=== PATIENT | female | born 1990 | race Caucasian/White ===

== ENCOUNTER 2017-03-03 04:23 | Inpatient (IN) | payer MEDICAID ==
[2017-03-03] VITALS (31 sets, daily range): BP systolic 113–139; BP diastolic 65–86; PULSE 84–120; RESP 18–20; TEMP 97.8–98.5; O2SAT 99
[~2017-03-03 04:23] MED LIST: IBUP600 PO; PERI8.6T PO; PREN1TAB30
[2017-03-03] MEDS ORDERED: NS 500 ML BOLUS IV PRN (05:15)
[2017-03-03] MEDS ORDERED: CITRIC ACID-SODIUM CITRATE LIQ 30 ML UDC PO SCH (05:15)
[2017-03-03] MEDS ORDERED: OXYTOCIN 30 UNITS 500ML PREMIX IV ONE (05:15)
[2017-03-03] MEDS ORDERED: LACTATED RINGER'S 1000 ML IV SCH (05:15)
[2017-03-03] MEDS ORDERED: ONDANSETRON HCL 4 MG/2 ML VIAL IV PRN (05:15)
[2017-03-03] MEDS ORDERED: LACTATED RINGER'S 1000 ML BOLUS IV PRN (05:15)
[2017-03-03] MEDS ORDERED: LIDOCAINE HCL 1% 50 ML VIAL INFIL PRN (05:15)
[2017-03-03] MEDS ORDERED: LIDOCAINE HCL 1% 50 ML VIAL I-DERMAL PRN (05:15)
[2017-03-03] MEDS ORDERED: MINERAL OIL 10 ML VIAL TOPICAL PRN (05:15)
[2017-03-03] MEDS ORDERED: NS 1000 ML IV PRN (05:15)
[2017-03-03 05:26] LABS: BLOOD, URINE NEG (NEG); GLUCOSE,URINE NEG (NEG); KETONE, URINE NEG (NEG); NITRITE,URINE NEG (NEG); SQUAMOUS EPITHELIAL CELL URINE 1 /hpf (0-5); URINE COLOR LIGHT-YELLOW (YELLW/STRAW)
[2017-03-03 05:29] LABS: COMMENT (UR) CULT NOT INDICATED; CULTURE IF INDICATED CULT NOT INDICATED
[2017-03-03 05:41] LABS: AUTOMATED NEUTROPHIL # 9.6 TH/MM3 (1.8-7.7); BASOPHIL % 0.4 % (0.0-2.0); EOSINOPHIL # 0.1 TH/MM3 (0-0.4); EOSINOPHIL % 0.5 % (0.0-4.0); HEMATOCRIT 33.1 % (35.0-46.0); LYMPH % 17.8 % (9.0-44.0); LYMPHOCYTE # 2.3 TH/MM3 (1.0-4.8); MEAN CELL VOLUME 80.3 FL (80.0-100.0); MEAN CORPUSCULAR HEMOGLOBIN 26.5 PG (27.0-34.0); MONO % 8.6 % (0.0-8.0); NEUT % 72.7 % (16.0-70.0); PLATELET COUNT 312 TH/MM3 (150-450); RED BLOOD COUNT 4.12 MIL/MM3 (4.00-5.30); RED CELL DISTRIBUTION WIDTH 13.8 % (11.6-17.2); WHITE BLOOD COUNT 13.2 TH/MM3 (4.0-11.0)
[2017-03-03] MEDS ORDERED: fentaNYL 2MCG-BUPIV 0.125% INJ 100 ML ONE (05:50)
[2017-03-03] MEDS ORDERED: ePHEDrine/NS 25 MG/5 ML SYR ONE (05:50)
[2017-03-03 05:52] LABS: HEMO FLAGS AUTO DIFF
[2017-03-03 06:55] LABS: PLATELET ESTIMATE SMEAR NORMAL (NORMAL); PLATELET MORPHOLOGY NORMAL (NORMAL); SCAN/DIFF AUTO DIFF CONFIRMED
--- NOTE | 2017-03-03 07:52 | HHI.HP ---
History & Physical H&P HPI Chief Complaint Contractions Date Seen: Mar 03, 2017 Travel History International Travel<30 Days: No Contact w/Intl Traveler<30Days: No Known Affected Area: No History of Present Illness HPI Patient is a 26-year-old at 385/7 weeks gestation who presents to the ED with contractions. Contractions were becoming stronger and increasing in frequency. Contractions are now occurring every 3-5 minutes. She denies any vaginal bleeding or discharge. No crush or leaking of fluid. Positive movement. care with [facility]. History (Limited) History Past Medical History Medical History: Denies Significant Hx Obstetric History Obstetric History in 2014 Past Surgical History Surgical History: No Previous Surgery Family History Family History: Negative Social History Alcohol Use: No Tobacco Use: No Substance Abuse: No Allergies-Medications Allergies-Medications (Allergen,Severity, Reaction): Coded Allergies: No Known Allergies (Unverified , 06/11/15) Home Meds Discontinued Reported Medications Vit W/ Ferrous Fumara ( Vitamin 27-0.8 mg) 1 Tab Tab 06/11/15 Discontinued Scripts Sennosides-Docusate Sodium (Libra-Colace 8.6-50 mg) 1 Tab Tab, 1 TAB PO BID Y for CONSTIPATION, #28 TAB 1 Refill Prov:Vale Parada MD 06/11/15 Ibuprofen (Motrin 600 Mg Tab) 600 Mg Tab, 600 MG PO Q6H Y for CONSTIPATION, #28 TAB 1 Refill Prov:Vale Parada MD 06/11/15 ROS Review of Systems Except as stated in HPI: all other systems reviewed are Neg General / Constitutional: No: Fever, Chills Eyes: No: Blurred Vision, Visual changes HENT: No: Headaches Cardiovascular: No: Chest Pain or Discomfort, Palpitations Respiratory: No: Cough, Short of Breath Gastrointestinal: No: Nausea, Vomiting, Abdominal Pain Genitourinary: Pelvic Pain, No: Dysuria, Discharge, Vaginal Bleeding Musculoskeletal: No: Edema Physical Exam Physical Exam Narrative GENERAL: Well-nourished, well-developed patient. SKIN: Warm and dry. HEAD: Normocephalic and atraumatic. EYES: No scleral icterus. No injection or drainage. ENT: No nasal drainage noted. Mucous membranes pink. Airway patent. NECK: Supple, trachea midline. No JVD. CARDIOVASCULAR: Regular rate and rhythm without murmurs, gallops, or rubs. RESPIRATORY: Breath sounds equal bilaterally. No accessory muscle use. ABDOMEN/GI: Abdomen soft, non-tender, bowel sounds present, no rebound, no guarding Gravid to 38 weeks size GENITOURINARY: External Genitalia: intact and normal in appearance BUS glands: normal Cervix: posterior Dilatation: 5 Effacement: 100 Station: -2 Presentation: vertex Membranes: AROM, clear fluid Uterine Contractions: q3-4min FHT's: Category: I Baseline: 140 Reactive: + Variability: moderate Decels: none EXTREMITIES: No cyanosis or edema. BACK: Nontender without obvious deformity. No CVA tenderness. NEUROLOGICAL: Awake and alert. Motor and sensory grossly within normal limits. Normal speech. Data Data Data Vital Signs Reviewed: Yes Orders Orders Ob (2e) Additional Admit Info (03/03/17 04:47) Admit To Inpatient (03/03/17 ) Code Status (03/03/17 04:57) Vital Signs (Adult) .Per protocol (03/03/17 04:57) Activity Oob Ad Ameena (03/03/17 04:57) Heart (03/03/17 04:57) Amnioinfusion (03/03/17 04:57) Urinary Catheter Management .ONCE (03/03/17 04:57) Diet Npo (03/03/17 Breakfast) Complete Blood Count With Diff (03/03/17 04:57) Hold Clot (03/03/17 04:57) Abo/Rh Blood Type (03/03/17 04:57) Urinalysis - C+S If Indicated (03/03/17 04:57) Resp Oxygen Non Rebreathe Mask (03/03/17 ) ^ Epidural / Intrathecal Infus (03/03/17 04:57) Inpatient Certification (03/03/17 ) Specimen To Be Collected PRN (03/03/17 04:57) Lactated Ringer's 1000 Ml Inj (Lr 1000 M (03/03/17 05:15) Lactated Ringer's 1000 Ml Inj (Lr 1000 M (03/03/17 05:15) Sodium Chlorid 0.9% 500 Ml Inj (Ns 500 M (03/03/17 05:15) Sodium Chlor 0.9% 1000 Ml Inj (Ns 1000 M (03/03/17 05:15) Lidocaine 1% Inj (50 Ml) (Xylocaine 1% I (03/03/17 05:15) Citric Acid-Sodium Citrate Liq (Bicitra (03/03/17 05:15) Ondansetron Inj (Zofran Inj) (03/03/17 05:15) Fentanyl Inj (Fentanyl Inj) (03/03/17 05:15) Fentanyl Inj (Fentanyl Inj) (03/03/17 05:15) Oxytocin 30 Units-500ml Premix (Pitocin (03/03/17 05:15) Lidocaine 1% Inj (50 Ml) (Xylocaine 1% I (03/03/17 05:15) Light Mineral Oil (Muri-Lube Oil) (03/03/17 05:15) Fentanyl 2mcg-Bupiv 0.125% Inj (Fentanyl (03/03/17 05:50) Ephedrine/Ns 25 Mg/5 Ml Syr (Ephedrine/N (03/03/17 05:50) Group B Strep: Negative Labs Laboratory Tests Test 03/03/17 04:45 03/03/17 05:21 Urine Color LIGHT-YELLOW Urine Turbidity CLEAR Urine pH 6.0 Urine Specific [place] 1.013 Urine Protein NEG Urine Glucose (UA) NEG Urine Ketones NEG Urine Occult Blood NEG Urine Nitrite NEG Urine Bilirubin NEG Urine Urobilinogen LESS THAN 2.0 Urine Leukocyte Esterase NEG Urine RBC LESS THAN 1 Urine WBC LESS THAN 1 Urine Squamous Epithelial Cells 1 Microscopic Urinalysis Comment CULT NOT INDICATED White Blood Count 13.2 Red Blood Count 4.12 Hemoglobin 10.9 Hematocrit 33.1 Mean Corpuscular Volume 80.3 Mean Corpuscular Hemoglobin 26.5 Mean Corpuscular Hemoglobin Concent 33.0 Red Cell Distribution Width 13.8 Platelet Count 312 Mean Platelet Volume 7.2 Neutrophils (%) (Auto) 72.7 Lymphocytes (%) (Auto) 17.8 Monocytes (%) (Auto) 8.6 Eosinophils (%) (Auto) 0.5 Basophils (%) (Auto) 0.4 Neutrophils # (Auto) 9.6 Lymphocytes # (Auto) 2.3 Monocytes # (Auto) 1.1 Eosinophils # (Auto) 0.1 Basophils # (Auto) 0.0 CBC Comment AUTO DIFF Differential Comment AUTO DIFF CONFIRMED Platelet Estimate NORMAL Platelet Morphology Comment NORMAL Red Cell Morphology Comment NORMAL MDM MDM Medical Record Reviewed: Yes Narrative Course / MDM 26 year old at 38-5/7 weeks gestation. 1. IUP- Category I tracing, reassuring. 2. Labor- Will admit for labor 3. GBS negative 4. Anticipate dw Cathy Christina MD, R3 Mar 03, 2017 07:52
--- NOTE | 2017-03-03 08:12 | PD.LABORPN ---
Subjective Subjective feeling comfortable with epidural in place Objective Objective Pelvic Exam: Cervix: [mid] Dilatation: [9-10] Effacement: [c] Station: [-1] Presentation: [vtx] Membranes: AROM'd clear this check Uterine Contractions: [q2-4 min] FHT's: Category: [I] Baseline: [130s] Reactive: [y] Variability: [y] Decels: [n] Weeks Gestation: 38 Gest Age Assessed Date: Mar 03, 2017 Gest Age Assessed Time: 08:10 Pt started active labor?: Yes Active labor start date: Mar 03, 2017 Active labor start time: 04:00 Medical induction of labor?: No Artificial rupture of membrane: Yes Artificial ROM date: Mar 03, 2017 Artifical ROM time: 07:45 (see RN note; estimated AROM time) Assessment/Plan Problem List: (1) Labor and delivery indication for care or intervention ICD Codes: O75.9 - Complication of labor and delivery, unspecified Status: Acute Assessment and Plan 26 yo with partida IUP at 38w5d admit for active labor 1) Labor: anticipate 2) GBS neg 3) dispo: plan for 2d PP Vale Parada MD Mar 03, 2017 08:12
[2017-03-03] MEDS ORDERED: BENZOCAINE 20% TOPICAL SPRAY 60 ML CAN TOPICAL PRN (09:00)
[2017-03-03] MEDS ORDERED: oxyCODONE/ACETAMINOPHEN 5 MG/325 MG TAB PO PRN ×2 (09:00)
[2017-03-03] MEDS ORDERED: OXYTOCIN 30 UNITS-500ML PREMIX 500 ML IV SCH (09:00)
[2017-03-03] MEDS ORDERED: SODIUM CHLORIDE 0.9% FLUSH 10 ML FLUSH IV FLUSH SCH (09:00)
[2017-03-03] MEDS ORDERED: WITCH HAZEL 50%/GLYCERIN 12.5% 40 PAD JAR TOPICAL PRN (09:00)
[2017-03-03] MEDS ORDERED: DOCUSATE SODIUM 50 MG/SENNA 8.6 MG TAB PO PRN (09:00)
[2017-03-03] MEDS ORDERED: ZOLPIDEM TARTRATE 5 MG TAB PO PRN (09:00)
[2017-03-03] MEDS ORDERED: ALUMINUM/MAGNESIUM/SIMETH 30 ML CUP PO PRN (09:00)
[2017-03-03] MEDS ORDERED: SODIUM CHLORIDE 0.9% FLUSH 10 ML FLUSH IV FLUSH PRN (09:00)
[2017-03-03] MEDS ORDERED: ONDANSETRON ODT 4 MG TAB PO PRN (09:00)
[2017-03-03] MEDS ORDERED: ACETAMINOPHEN 325 MG TAB PO PRN (09:00)
--- NOTE | 2017-03-03 09:01 | PD.OB.DELI ---
Weeks gestation: 38 Gest age assessed date: Mar 03, 2017 Gest age assessed time: 08:10 Pt started active labor?: Yes Active labor start date: Mar 03, 2017 Active labor start time: 04:00 Medical induction of labor?: No Artificial rupture of membrane: Yes Artificial ROM date: Mar 03, 2017 Artifical ROM time: 07:45 (see RN note; estimated AROM time) Anesthesia: Epidural Episiotomy: None Vaginal Delivery: Normal, Spontaneous Presentation: Occiput anterior Nuchal Cord: x1 (reduced at delivery), Other (body cord delivered through) Delayed cord clamping (45 sec): Yes : Male Delivery date: Mar 03, 2017 Delivery time: 08:46 One Minute : 8 Five Minute : 9 Weight: pending Placenta: Spontaneous delivery, Intact, 3 vessel cord Laceration: Perineal laceration, 1 deg Repair: Chromic running Estimated blood loss: 100 mL Additional Information uncomplicated vaginal delivery healthy male Vale Parada MD Mar 03, 2017 09:01
[2017-03-03] MEDS ORDERED: ePHEDrine/NS 25 MG/5 ML SYR IV PRN (10:45)
[2017-03-03] MEDS ORDERED: NO SYSTEM NARCOTICS PRN (11:00)
[2017-03-03] MEDS ORDERED: fentaNYL 2MCG-BUPIV 0.125% 100 ML EPIDURAL SCH (11:00)
[2017-03-03] MEDS ORDERED: DO NOT ADMINISTER ANTICOAGULANTS PRN (11:00)
[2017-03-03] MEDS: IBUPROFEN 600 MG TAB PO PRN ×2 (11:25→19:04)
[2017-03-03] MEDS ORDERED: DIPHTH/TETANUS/ACEL PERTUSSIS (BOOSTER) 0.5 ML VIAL/PFS IM ONE (16:00)
[2017-03-03] MEDS ORDERED: MEASLES, MUMPS, RUBELLA VACCINE 0.5 ML VIAL SQ ONE (16:00)
[2017-03-04] MEDS: IBUPROFEN 600 MG TAB PO PRN ×2 (01:51→08:45)
[2017-03-04 08:00] VITALS: BP 112/78; PULSE 84; RESP 16; TEMP 98.8
--- NOTE | 2017-03-04 08:14 | HHI.OB ---
Subjective Post Day: 1 Remarks Doing well nursing plans for circumcision at residency clinic no complaints or concerns Objective Vitals/I&O Vital Signs Date Time Temp Pulse Resp B/P (MAP) Pulse Ox O2 Delivery O2 Flow Rate FiO2 03/04/17 02:51 16 03/03/17 20:01 98.5 88 18 117/72 (87) 03/03/17 13:30 97.8 90 18 137/86 (103) 99 03/03/17 13:30 137/86 (103) 03/03/17 13:30 97.8 90 18 99 03/03/17 12:35 18 03/03/17 10:45 20 03/03/17 10:30 119 128/69 (88) 03/03/17 10:15 20 03/03/17 10:00 96 123/69 (87) 03/03/17 09:30 84 113/75 (88) 03/03/17 09:30 20 03/03/17 09:15 98.2 20 03/03/17 09:00 100 123/66 (85) Objective Remarks GENERAL: Well-nourished, well-developed patient. CARDIOVASCULAR: Regular rate and rhythm without murmurs, gallops, or rubs. RESPIRATORY: Breath sounds equal bilaterally. No accessory muscle use. ABDOMEN/GI: Abdomen soft, non-tender. Fundus: Firm, non-tender at umbilicus. GENITOURINARY: Light to moderate bleeding. EXTREMITIES: No cyanosis or edema, non-tender, without signs of DVT. Medications and IVs Current Medications Medications (Trade) Dose Ordered [facility] Route Start Time Stop Time Status Last Admin (NS Flush) 2 ml BID IV FLUSH 03/03/17 09:00 (NS Flush) 2 ml UNSCH PRN IV FLUSH 03/03/17 09:00 (Tylenol) 650 mg Q4H PRN PO 03/03/17 09:00 (Motrin) 600 mg Q6H PRN PO 03/03/17 09:00 03/04/17 01:51 (Percocet 5-325 Mg) 1 tab Q4H PRN PO 03/03/17 09:00 (Percocet 5-325 Mg) 2 tab Q4H PRN PO 03/03/17 09:00 (Americaine 20% Top Spr) 1 spray Q4H PRN TOPICAL 03/03/17 09:00 03/03/17 19:04 (Tucks Pads) 1 applic QID PRN TOPICAL 03/03/17 09:00 03/03/17 19:04 (Libra-Colace) 2 tab Q12H PRN PO 03/03/17 09:00 (Ambien) 5 mg HS PRN PO 03/03/17 09:00 (Mag-Al Plus Susp Liq) 15 ml Q8H PRN PO 03/03/17 09:00 (Zofran Odt) 4 mg Q6H PRN PO 03/03/17 09:00 Miscellaneous Information No systemic narcotics to be given except... UNSCH PRN .XX 03/03/17 11:00 03/04/17 10:59 Miscellaneous Information DO NOT ADMINISTER ANY ANTICOAGUL... UNSCH PRN .XX 03/03/17 11:00 03/04/17 10:59 Fentanyl/ Bupivacaine HCl 100 ml @ 0 mls/hr TITRATE EPIDURAL 03/03/17 11:00 (ePHEDrine/NS 25 MG/5 ML SYR) 10 mg UNSCH PRN IV 03/03/17 10:45 03/04/17 10:44 Assessment/Plan Problem List: (1) Labor and delivery indication for care or intervention ICD Codes: O75.9 - Complication of labor and delivery, unspecified Status: Acute Assessment and Plan PPD 1 p uneventful baby boy if he can be discharged, she would go home today Liseth Landers MD Mar 04, 2017 08:14
--- NOTE | 2017-03-04 08:15 | HHI.DCPOC ---
Discharge Care Plan Report Symptoms to Your Doctor -Temperature above 100.5 degrees -Redness, of incision or excessive or foul smelling drainage -Unusual pain or calf pain -Increased vaginal bleeding -Painful or difficulty urinating -Feelings of extreme sadness or anxiety after 2 weeks Goals to Promote Your Health * To prevent worsening of your condition and complications * To maintain your health at the optimal level Directions to Meet Your Goals Take your medications as prescribed Follow your dietary instruction Follow activity as directed Ensure plenty of rest for recovery Drink fluids for hydration Keep your appointments as scheduled Take your immunizations and boosters as scheduled If your symptoms worsen call your PCP, if no PCP go to Urgent Care Center or Emergency Room Smoking is Dangerous to Your Health. Avoid second hand smoke Call the 24-hour crisis hotline for domestic abuse at Liseth Landers MD Mar 04, 2017 08:15
== END 2017-03-04 15:06 | disposition home or self-care (01) | DRG 775 ==
LOC: HOBED 04:23 → H2EA 04:49 → H1EA 11:49
PROVIDERS: ADMIT Obstetrics & Gynecology; ATTEND Obstetrics & Gynecology
PROC: 10E0XZZ Delivery of Products of Conception, External Approach (ICD-10-PCS; principal; 2017-03-03)
PROC: 0HQ9XZZ Repair Perineum Skin, External Approach (ICD-10-PCS; 2017-03-03)
PROC: 3E0R3CZ (ICD-10-PCS; 2017-03-03)
PROC: 00HU33Z Insertion of Infusion Device into Spinal Canal, Percutaneous Approach (ICD-10-PCS; 2017-03-03)
DX: O69.81X0 Labor and delivery complicated by cord around neck, without compression, not applicable or unspecified (principal); O75.5 Delayed delivery after artificial rupture of membranes; O70.0 First degree perineal laceration during delivery; Z37.0 Single live birth; Z3A.38 38 weeks gestation of pregnancy
CPT/HCPCS: 59025; 81001; 85025; 86900; 86901; J2590